=== PATIENT | female | born 1980 | race Caucasian/White ===

== ENCOUNTER → 2017-10-22 | Outpatient (CLI) | payer OTHER ==
--- NOTE | ~2017-10-22 | S ---
[facility] [place] [address] [place] [address] SURGICAL PATH RPT PROCEDURE Name: SHAHRZAD HARRIS Room #: REG [facility]..#: [id number] Admission: 10/22/17 Date of : 84 Discharge: Report #: [id number] Path Case #: [id number] PATHOLOGY REPORT COLLECTION DATE: 10/22/2017 RECEIVED DATE: 10/22/2017 SUBMITTING PHYS: Dr. Amish Segal OTHER PHYS: DALILA Hughes SPECIMEN(S) RECEIVED: A.Right breast 12:00 4 cm * * * * * * * * * * * * FINAL DIAGNOSIS: A. Right breast 12:00 4 cm: - INVASIVE MAMMARY CARCINOMA, DUCTAL TYPE, POORLY DIFFERENTIATED. - DUCTAL CARCINOMA IN SITU, HIGH NUCLEAR GRADE, SOLID TYPE WITH COMEDO NECROSIS. - See comment. COMMENT: Specimen type: Breast biopsy Tumor site: Right breast,12:00 Tumor quantitation: 1.7 cm in greatest dimension Histologic type: Invasive mammary carcinoma, ductal type Histologic grade: Grade 3, poorly differentiated Tubules, nuclei and mitoses: Tubules-3, Nuclei-3, Mitoses-3 LVSI: Not identified Microcalcifications: Present Markers: ER, MD, HER2, Ki-67 Block: A1 (will be reported as an addendum) The diagnosis is discussed with Emeka at the [facility] breast center on 10/25/2017 at 2:15 PM. This case is co-reviewed by Dr. Ruba Perdomo. PATHOLOGIST: Larry Jones M.D. REPORT ELECTRONICALLY SIGNED BY: Larry Jones M.D. DATE/TIME: 10/25/2017 14:25 * * * * * * * * * * * * GROSS PATHOLOGY: Received in formalin labeled "Shahrzad Harris, right breast 12:00 4 cm," are multiple needle cores of yellow-martinez fibrofatty tissue measuring 1.2-2.5 cm in aggregate dimensions. The tissue is submitted in its [facility] [place] [address] SURGICAL PATH RPT PROCEDURE Name: SHAHRZAD HARRIS Room #: REG [facility].#: [id number] Admission: 10/22/17 Date of : 84 Discharge: Report #: [id number] Path Case #: [id number] entirety in cassette A1 through A3. The cold ischemic time is 5 minutes. The total formalin fixation time is 8 hours and 35 minutes. (TSD; 10/22/2017) CLINICAL HISTORY: Nodule INITIAL CPT CODE(S): A; 12005, 34635(4) Professional services performed by [facility] at [facility] [address] [place] [address] Technical services performed by [facility] at [address] [place] [address], [address], [place] [address]. PROCEDURE REPORT (Order Date: 10/28/2017 00:00) COMMENT: Quantitative image analysis was performed on block A1. Please see next page for scanned image of results. ([facility] 11/01/2017) PATHOLOGIST: Ruba Perdomo M.D. REPORT ELECTRONICALLY SIGNED BY: Ruba Perdomo M.D. DATE/TIME: 11/01/2017 09:[address] [facility] [address] [place] [address] PHONE: [phone] DIRECTOR: Uche Pham M.D. * * * END OF REPORT * * *
== END | disposition home or self-care (01) ==
LOC: RAD 08:03
DX: D05.11 Intraductal carcinoma in situ of right breast (principal)